=== PATIENT | male | born 1955 | race Caucasian/White ===

== ENCOUNTER 2018-04-13 17:02 | Outpatient (CLI) | payer OTHER, SELFPAY ==
--- NOTE | 2018-04-13 14:40 | DI.RAD_ITS ---
SYMPTOMS/DIAGNOSIS: CHRONIC BILATERAL LOW BACK PAIN, H/O BLADDER CA, M47.816 LUMBAR SPINE: AP, lateral and bilateral oblique views of the lumbar spine. Comparison MRI is 10/23/16. There is normal alignment of the lumbar spine. No spondylolysis or spondylolisthesis is seen. There is disc space narrowing and endplate osteophytes seen in the lower lumbar spine. Degenerative changes of the facets are present in the lower lumbar spine. The bones are normally mineralized. No acute fracture or subluxation is seen. Note is made of calcification of the abdominal aorta. IMPRESSION: Mild to moderate degenerative changes in the lumbar spine.
== END 2018-04-13 17:22 ==
PROVIDERS: PCP Legal Medicine; Visit Provider Nurse Practitioner Family
DX: M54.5 Low back pain (principal); M47.816 Spondylosis without myelopathy or radiculopathy, lumbar region; Z85.51 Personal history of malignant neoplasm of bladder
CPT/HCPCS: 72110

== ENCOUNTER 2018-04-27 12:55 | Outpatient (CLI) | payer OTHER, SELFPAY ==
--- NOTE | 2018-04-27 06:00 | DI.RAD_ITS ---
SYMPTOM/DIAGNOSIS: LUMBAR SPONDYLOSIS, LUMBAR MEDIAL BRANCH BLOCK C-ARM: Fluoroscopy Time: 54.1 seconds Images obtained from the pain clinic demonstrate placement of needles over the left lateral portion of the L 4 and left S 1-2 levels in connection with a branch blocked carried out by Dr. Spangler. Please see the separate report.
[2018-04-27 13:03] VITALS: BP 164/78; PULSE 56; RESP 18; TEMP 36.2; O2SAT 99
--- NOTE | 2018-04-27 13:48 | PDOC.PAIN ---
Pain Clinic Procedure Note Current Active Problems Problem Status Onset Spondylosis of lumbar region without myelopathy or radiculopathy Acute Lumbar/Sacral Medial Branch Blocks TRA BARRETT has been referred to the [facility] for lumbar/sacral medial branch blocks. COMMENTS: I reviewed Ms. Rowe's note from 04/13/18 DX: Lumbosacral spondylosis without myelopathy Patient was interviewed and the medical record reviewed. There were no medical, pharmacologic, radiographic or other structural contraindications to attempting fluoroscopically guided local anesthetic lumbar/sacral medial branch blocks. Risks and expected side effects as well as potential benefit of the procedure were reviewed and voiced concerns addressed. The printed consent form was signed and witnessed. Standard time-out procedure was performed. Patient was placed in the prone position on the fluoroscopy table and automated blood pressure cuff and pulse oximeter applied. The skin entry points for approaching the anatomic target points of the segmental medial branches of bilateral L3-L5 were identified with anfluoroscopy and marked. Following thorough Chlorhexadine preparation of the skin and draping and 1% lidocaine infiltration of the skin entry points and subcutaneous tissues, a 22 gauge spinal needle was placed under fluoroscopic guidance down on to the target point for each respective segmental medial branch.Position was confirmed in A/P, oblique and lateral views with 0.25ml of omnipaque. Next .5ml 0.5% Bupivacaine was injected to each segmental nerve area. Vital signs were stable throughout the procedure and were as recorded in the docflowsheet by the nursing staff. Follow up plans and appointments were discussed and was instructed to keep careful note of how the usual pain was modified by these injections. Specifically was asked to keep a pain diary for the next 24 hours using a numeric pain scale of 0-10 and report these results at the follow-up visit. Post procedure instruction was given as documented in the nursing documentation and having met discharge criteria. Patient was discharged from the [facility]. Based on the medial branches blocked today, if the patient has adequate relief and we are able to proceed to radiofrequency ablation, the treatment should result in the denervation of the bilateral L4-L5 and L5-S1 FACET JOINTS. We would expect to denervate a total of 4 facets during the radiofrequency ablation. COMMENTS: He will call back with his 1-4 hour post-procedure pain scores. CC: Viola Santos
[2018-04-27] MEDS: Omnipaque 240 MG/ML 50 ML BTL IJ (13:56)
[2018-04-27] MEDS: Bupivacaine 0.5% Pres-Free 30 ML VIAL IJ (13:56)
[2018-04-27 13:58] VITALS: BP 172/87; PULSE 57; RESP 17; O2SAT 99
== END 2018-04-27 13:15 ==
PROVIDERS: PCP Legal Medicine; Visit Provider Preventive Medicine Occupational Medicine
DX: M47.816 Spondylosis without myelopathy or radiculopathy, lumbar region (principal)
CPT/HCPCS: 64493; 64494; 72100; Q9967

== ENCOUNTER 2018-05-25 10:25 | Outpatient (CLI) | payer OTHER, SELFPAY ==
[2018-05-25 10:33] VITALS: BP 149/78; PULSE 52; RESP 16; TEMP 36.2; O2SAT 100
[2018-05-25 10:59] VITALS: BP 152/78; PULSE 58; RESP 15; O2SAT 100
--- NOTE | 2018-05-25 11:00 | DI.RAD_ITS ---
SYMPTOMS/DIAGNOSIS: LUMBAR SPONDYLOSIS, LUMBAR MEDIAL BRANCH BLOCK C-ARM FLUOROSCOPY OF THE LUMBAR SPINE: Fluoroscopy Time: 51.9 Fluoroscopy was provided for guidance with lumbar spine pain clinic injections. Please see procedure note for details.
[2018-05-25] MEDS: Lidocaine 2% Pres-Free 5 ML VIAL IJ (11:02)
[2018-05-25] MEDS: Omnipaque 240 MG/ML 50 ML BTL IJ (11:02)
--- NOTE | 2018-05-25 11:02 | PDOC.PAIN ---
Pain Clinic Procedure Note Current Active Problems Problem Status Onset Spondylosis of lumbar region without myelopathy or radiculopathy Acute Lumbar/Sacral Medial Branch Blocks TRA BARRETT has been referred to the [facility] for lumbar/sacral medial branch blocks. COMMENTS: He did very well with the first LMBB. Patient was interviewed and the medical record reviewed. There were no medical, pharmacologic, radiographic or other structural contraindications to attempting fluoroscopically guided local anesthetic lumbar/sacral medial branch blocks. Risks and expected side effects as well as potential benefit of the procedure were reviewed and voiced concerns addressed. The printed consent form was signed and witnessed. Standard time-out procedure was performed. Patient was placed in the prone position on the fluoroscopy table and automated blood pressure cuff and pulse oximeter applied. The skin entry points for approaching the anatomic target points of the segmental medial branches of bilateral L3-L5DR were identified with fluoroscopy and marked. Following thorough Chlorhexadine preparation of the skin and draping and 1% lidocaine infiltration of the skin entry points and subcutaneous tissues, a 22 gauge spinal needle was placed under fluoroscopic guidance down on to the target point for each respective segmental medial branch.Position was confirmed in A/P, oblique and lateral views with 0.25ml of omnipaque 240. Next I injected 0.5cc of 2% Lidocaine at each segmental nerve. Vital signs were stable throughout the procedure and were as recorded in the docflowsheet by the nursing staff. Follow up plans and appointments were discussed and was instructed to keep careful note of how the usual pain was modified by these injections. Specifically was asked to keep a pain diary for the next 24 hours using a numeric pain scale of 0-10 and report these results at the follow-up visit. Post procedure instruction was given as documented in the nursing documentation and having met discharge criteria. Patient was discharged from the [facility]. Based on the medial branches blocked today, if the patient has adequate relief and we are able to proceed to radiofrequency ablation, the treatment should result in the denervation of the bilateral L3-L5DR FACET JOINTS. We would expect to denervate a total of 4 facets during the radiofrequency ablation. COMMENTS:He will call back with his 0-4 hour pain levels for the low back. His pain relief to the low back at 5 minutes after the procedure was 100%. CC: Viola Santos
== END 2018-05-25 10:45 ==
PROVIDERS: PCP Legal Medicine; Visit Provider Preventive Medicine Occupational Medicine
DX: M47.816 Spondylosis without myelopathy or radiculopathy, lumbar region (principal)
CPT/HCPCS: 64493; 64494; 72100; Q9967

== ENCOUNTER 2018-06-09 07:34 | Outpatient (CLI) | payer OTHER, SELFPAY ==
--- NOTE | 2018-06-09 06:00 | DI.RAD_ITS ---
SYMPTOMS/DIAGNOSIS: LUMBAR SPONDYLOSIS, LUMBAR RADIOFREQUENCY ABLATION C-ARM FLUOROSCOPY: Fluoroscopy Time: 43.9sec, 13.08mgy C-arm fluoroscopy was utilized by Dr. Treviño during reported radiofrequency ablation. Hardcopies show needle placement bilaterally adjacent to the pedicles of what appear to be L 4, L 5 and S 1.
[2018-06-09 07:46] VITALS: BP 166/88; PULSE 53; RESP 18; TEMP 36.6; O2SAT 98
[2018-06-09] MEDS: Lactated Ringers 1,000 ML 80 ML IV (08:22)
[2018-06-09] MEDS: Midazolam 2 MG/2 ML VIAL IVP ×2 (08:26→08:47)
[2018-06-09] MEDS: fentaNYL 100 MCG/2 ML VIAL IVP ×2 (08:26→08:29)
[2018-06-09 08:55] VITALS: BP 150/85; PULSE 56; RESP 15; O2SAT 96
[2018-06-09] MEDS: Lidocaine 1% Pres-Free 5 ML VIAL IJ (09:08)
--- NOTE | 2018-06-09 09:09 | PDOC.PAIN ---
Pain Clinic Procedure Note Current Active Problems Problem Status Onset Spondylosis of lumbar region without myelopathy or radiculopathy Acute COOLED LUMBAR/SACRAL MEDIAL BRANCH RADIOFREQUENCY TRA BARRETT has been referred to the [facility] for radiofrequency treatment of chronic axial back pain. TRA has had long standing back pain thought to be facet joint generated and which has been refractory to other therapies. Local anesthetic medial branch blocks or intra-articular facet joint injections resulted in TRA reporting reduction of the usual axial component of pain for at least the duration of the local anesthetic effect. COMMENTS: Patient had relief from his previous medial branch blocks for approximately 4 hours each Patient was interviewed and the medical record reviewed. There were no medical, pharmacologic, radiographic or other structural contraindications to attempting fluoroscopically guided radiofrequency treatment. Risks and expected side effects as well as potential benefit of the procedure were reviewed and voiced concerns addressed. The printed consent form was signed and witnessed. Standard time-out procedure was performed. Patient was placed in the prone position on the fluoroscopy table and automated blood pressure cuff and pulse oximeter applied. The skin entry points for approaching the anatomic target points of the segmental medial branches of { bilateral:L3,4,5} were identified with fluoroscopy and marked. Following thorough Chlorhexadine preparation of the skin and draping and 1% lidocaine infiltration of the skin entry points and subcutaneous tissues, a single 17 guage 10 cm 4mm active tip radiofrequency cannula was placed under fluoroscopic guidance along or across the anatomic course of each respective segmental medial branch. Each placement was stimulated at 50Hz and les then 0.5V for medial branch sensory localization and the at 2Hz and up to 3 times the sensory voltage without any evidence of distal myotomal stimulation. 1cc of 1% ;idocaine was injected at each site. At each placement a continuous mode radiofrequency treatment was done at 60 degrees C for 180secs. This radiofrequency treatment should result in the denervation of the { bilateral L4-5,L5-S1 FACET JOINTS}.~ A total of {4} facets were expected to be denervated from today's treatment. Vital signs were stable throughout the procedure and were as recorded in the docflowsheet by the nursing staff. If given, dosages of intravenous drugs for anxiolysis and analgesia were documented in the Medication Administration Record (MAR). Follow up plans and appointments were discussed. Post procedure instruction was given as documented in the nursing documentation and having met discharge criteria, TRA was discharged from the [facility]. COMMENTS: Versed 2 mg and fentanyl 100 mcg given. It was noted that he had a partially sacralized L5 on the right with a appear to be pseudoarticulation. Clear if that is part of his symptoms with this consider injection ther if he continues to have right low back pain. CC: Viola Santos
== END 2018-06-09 07:54 ==
PROVIDERS: PCP Legal Medicine; Visit Provider Anesthesiology Pain Medicine
DX: M47.816 Spondylosis without myelopathy or radiculopathy, lumbar region (principal)
CPT/HCPCS: 64635; 64636; 72100; J2250; J3010

== ENCOUNTER 2019-01-25 07:41 | Outpatient (CLI) | payer OTHER, SELFPAY ==
--- NOTE | 2019-01-25 06:00 | DI.RAD_ITS ---
EXAM: XR PAIN CLINIC LUMBAR SP 2V CLINICAL HISTORY: LUMBAR RFA TECHNIQUE: Realtime digital imaging was performed. Two views were submitted from the pain clinic. CONTRAST MATERIAL: Water soluble contrast was administered. COMPARISON: None. FINDINGS: Images submitted from the pain clinic demonstrate needle positioning over the upper portion of L4 and L5, the proximal left sallie sacrum in conjunction with a radiofrequency. Please see the procedure rep ort for further information. IMPRESSION:
[2019-01-25 07:49] VITALS: BP 144/82; PULSE 53; RESP 16; TEMP 36; O2SAT 97
[2019-01-25] MEDS: Midazolam 2 MG/2 ML VIAL IVP (08:33)
[2019-01-25] MEDS: fentaNYL 100 MCG/2 ML VIAL IVP ×3 (08:33→08:53)
[2019-01-25] MEDS: Lactated Ringers 1,000 ML 80 ML IV (08:35)
[2019-01-25 09:06] VITALS: BP 163/94; PULSE 84; RESP 18; O2SAT 98
[2019-01-25] MEDS: Lidocaine 2% Pres-Free 5 ML VIAL IJ (09:07)
[2019-01-25] MEDS: Bupivacaine 0.5% Pres-Free 10 ML VIAL IJ (09:07)
--- NOTE | 2019-01-25 09:11 | PDOC.PAIN ---
Pain Clinic Procedure Note Procedure Note Procedure Note: LUMBAR/SACRAL MEDIAL BRANCH RADIOFREQUENCY USING THE COOLIEF MACHINE TRA BARRETT has been referred to the [facility] for radiofrequency treatment of chronic axial back pain. TRA has had long standing back pain thought to be facet joint generated and which has been refractory to other therapies. Local anesthetic medial branch blocks or intra-articular facet joint injections resulted in TRA reporting reduction of the usual axial component of pain for at least the duration of the local anesthetic effect. COMMENTS: Previous Lumbar RFA >6. I did add the bilateral S1 lateral branches to get better denervation of the L5-S1 facet joints without any added cost. DX: Lumbosacral spondylosis without myelopathy Patient was interviewed and the medical record reviewed. There were no medical, pharmacologic, radiographic or other structural contraindications to attempting fluoroscopically guided radiofrequency treatment. Risks and expected side effects as well as potential benefit of the procedure were reviewed and voiced concerns addressed. The printed consent form was signed and witnessed. Standard time-out procedure was performed. Patient was placed in the prone position on the fluoroscopy table and automated blood pressure cuff and pulse oximeter applied. The skin entry points for approaching the anatomic target points of the segmental medial branches of bilateral L3-L5 and the lateral branches of the bilateral S1 were identified with fluoroscopy and marked. Following thorough Chlorhexadine preparation of the skin and draping and 1% lidocaine infiltration of the skin entry points and subcutaneous tissues, a single 18 guage curved 10 cm 10mm active tip radiofrequency cannula was placed under fluoroscopic guidance along or across the anatomic course of each respective segmental medial branch. Each placement was stimulated at 50Hz and les then 0.5V for medial branch. 1cc of 1% ;idocaine was injected at each site. At each placement a continuous mode radiofrequency treatment was done at 90 degrees C for 90secs. This radiofrequency treatment should result in the denervation of the bilateral L4-L5 and L5-S1 FACET JOINTS. A total of 4 facets were expected to be denervated from today's treatment. Vital signs were stable throughout the procedure and were as recorded in the docflowsheet by the nursing staff. If given, dosages of intravenous drugs for anxiolysis and analgesia were documented in the Medication Administration Record (MAR). Follow up plans and appointments were discussed. Post procedure instruction was given as documented in the nursing documentation and having met discharge criteria, TRA was discharged from the [facility]. COMMENTS: If this is helpful for at least 6 months he can repeat it without repeating the LMBBs. CC: Viola Santos
[2019-01-25] MEDS: methylPREDNISolone ACETATE 40 MG/ML VIAL IJ (09:18)
== END 2019-01-25 08:01 ==
PROVIDERS: PCP Legal Medicine; Visit Provider Preventive Medicine Occupational Medicine
DX: M47.817 Spondylosis without myelopathy or radiculopathy, lumbosacral region (principal)
CPT/HCPCS: 64635 ×2; 64636 ×2; 72100; J1030; J2250; J3010

== ENCOUNTER 2020-06-05 11:19 | Outpatient (CLI) | payer OTHER, SELFPAY ==
[2020-06-05 11:34] VITALS: BP 137/73; PULSE 67; RESP 17; TEMP 36.8; O2SAT 97
[2020-06-05] MEDS: Lactated Ringers 1,000 ML 80 ML IV (12:08)
[2020-06-05] MEDS: fentaNYL 100 MCG/2 ML VIAL IVP ×3 (12:16→12:45)
[2020-06-05] MEDS: Midazolam 2 MG/2 ML VIAL IVP (12:17)
[2020-06-05 12:53] VITALS: BP 139/87; PULSE 77; RESP 15; O2SAT 100
--- NOTE | 2020-06-05 12:53 | DI.RAD_ITS ---
EXAM: XR PAIN CLINIC LUMBAR SP 2V CLINICAL HISTORY: DX: Lumbar Spondylosis,BILAT LUMBAR RADIOFREQUENCY ABLATION TECHNIQUE: Fluoroscopy was provided for the referring physician for guidance with performing injecti on procedure. COMPARISON: No exams were available for comparison FINDINGS: Please see procedure note for details. FLUORO TIME: 79.1 seconds RADIATION DOSE DELIVERED:
--- NOTE | 2020-06-05 12:59 | PDOC.PAIN ---
Pain Clinic Procedure Note Procedure Note Procedure Note: Bilateral Lumbar Radiofrequency with Coolief Machine PROCEDURE NOTE Date of Service: June 05, 2020 Patient: TRA BARRETT Provider: Tito Spangler DO, MPH Pre Operative Diagnosis: Lumbosacral spondylosis without myelopathy Post Operative Diagnosis: Same PROCEDURE: Radiofrequency Ablation of medial branches - Bilateral L3 L4 L5 and bilateral S1 lateral branches. I added the bilateral S1 lateral branches to potentially improve the ablation to the L5-S1 facet joints. TRA BARRETT was brought into the fluoroscopy suite and positioned into the prone position on the fluoroscopy table and allowed to adjust to a position of comfort. A grounding pad was placed on the [right/left] thigh. The lumbar region was widely prepped with a chloraprep solution, allowed to air dry and draped in standard sterile surgical fashion. Local anesthesia was provided by 1 mL of 2 % Lidocaine delivered with a 25g needle. A 17g 100mm radiofrequency introducer needle was placed to the planned anatomic targets guided with intermittent fluoroscopy with a perpendicular approach to terminally place at the junction of the superior articular process and the transverse process of the bilateral L3 L4 L5, the base of the sacral ala on the bilateral for the L5 medial branch nerve, and to the area between the sacral ala and the S1 neuroforamen for the bilateral S1 lateral branches. The stylets were removed and radiofrequency probes with a 4mm active tip were then inserted. Needle tip position of the probes was verified in the AP, oblique, and lateral views. At each site, the medial branch nerve was stimulated at 2 Hz to a maximum 1-2 volts determined to finalize safe needle and electrode placement. The patient was awake and responsive during this portion of the procedure. Each target was anesthetized with 1-2 mL of 2% Lidocaine for anesthesia for lesioning and then each target was lesioned at 80 degrees Celsius for 2 minutes and 30 seconds. Tissue impedences were noted to be between 250 and 500 Ohms. I injected 1/4 cc of Depomedrol (40 mg/cc) and 1 cc of 0.5% Bupivacaine to each sensory nerve after the ablation. Electrodes and needles were then removed and bandages placed over the needle placement sites, the patient then returned to the supine position on a stretcher and transported to the recovery room without hemodynamic, neurologic, or allergic reactions. Fluoroscopic images were printed for hard copy recording and digitally archived. Follow up plans and appointments were discussed with the TRA . Post procedure instruction was given as documented in nursing documentation and having met discharge criteria, TRA was discharged from the [facility]. COMMENTS: No complications. F/U with our office as needed. I personally performed this entire procedure. Tito Spangler DO, MPH Pain Management Attending Physician
[2020-06-05] MEDS: Lidocaine 2% Pres-Free 5 ML VIAL IJ (13:02)
[2020-06-05] MEDS: Bupivacaine 0.5% Pres-Free 10 ML VIAL IJ (13:02)
[2020-06-05] MEDS: methylPREDNISolone ACETATE 40 MG/ML VIAL IJ (13:03)
== END 2020-06-05 11:39 ==
PROVIDERS: PCP Legal Medicine; Visit Provider Preventive Medicine Occupational Medicine
DX: M47.817 Spondylosis without myelopathy or radiculopathy, lumbosacral region (principal)
CPT/HCPCS: 64635; 64636; 72100; J1030; J2250; J3010